=== PATIENT | male | born 1965 | race Caucasian/White ===

== ENCOUNTER 2016-09-14 11:13 | Day surgery (SDC) | payer OTHER ==
[~2016-09-14] VITALS: Ht 180.3 cm; Wt 109.4 kg
[2016-09-14 11:49] VITALS: Ht 180.3 cm; Wt 109.4 kg
[2016-09-14] MEDS ORDERED: LISI20TA11 PO (12:20)
[2016-09-14] MEDS ORDERED: RIVA20TA PO (12:20)
[2016-09-14] MEDS ORDERED: METO100T13 PO (12:20)
[2016-09-14] MEDS ORDERED: DIGO125T6 PO (12:20)
[2016-09-14] MEDS ORDERED: SPIR100T31 PO (12:20)
[2016-09-14] MEDS ORDERED: AMLO-147 PO (12:20)
[2016-09-14] MEDS ORDERED: POTA20TA96 PO (12:21)
[2016-09-14 12:33] VITALS: BP 127/85; PULSE 100; RESP 25
[2016-09-14 13:53] VITALS: BP 140/84; PULSE 86; RESP 20
[2016-09-14] MEDS ORDERED: PROPOFOL 40 ML ONE (15:03)
--- NOTE | 2016-09-14 16:01 | GILP ---
DATE OF PROCEDURE: 09/14/2016 PROCEDURE DONE: Colonoscopy. SURGEON: Harriet Madrigal MD ANESTHESIOLOGIST: Donny Mcgregor MD POSTOPERATIVE DIAGNOSIS: Poor prep in the right colon, internal and external hemorrhoids grade II. DESCRIPTION OF PROCEDURE: After obtaining informed consent, the patient was sedated, monitored by keven aguilar anesthesiologist. Then, very carefully advanced an Olympus video colonoscope all the way to the right colon. By washing, I cleared some of the stool, but some of the areas could not be examined p roperly. Cecum, ascending colon, otherwise unremarkable. Transverse colon, descending colon, sigmo id colon normal, and in the rectum by retroflexion and antegrade exam showed grade II internal and e xternal hemorrhoids. Upon removal of scope, patient had no complication. Dear Dr. Jose R Madrid, Most of the colon was normal except some areas of the right colon not clean. Recommend next year if there is any occult bleeding, barium enema and follow up with you. If he continues to bleed, consi bobo capsule enteroscopy. Dictated By: HARRIET STEIN Conf#: [id number] DID#: [id number] CC: JOSE R MADRID MD;*EndCC*
== END 2016-09-14 15:25 | disposition home or self-care (01) ==
LOC: GIL 11:13
PROVIDERS: ATTEND Internal Medicine
DX: Z12.11 Encounter for screening for malignant neoplasm of colon (principal); K64.1 Second degree hemorrhoids; I50.9 Heart failure, unspecified; I42.9 Cardiomyopathy, unspecified; Z80.0 Family history of malignant neoplasm of digestive organs; Z82.3 Family history of stroke; Z82.49 Family history of ischemic heart disease and other diseases of the circulatory system; Z80.1 Family history of malignant neoplasm of trachea, bronchus and lung
CPT/HCPCS: 45378; Z7610